=== PATIENT | female | born 1965 | race Caucasian/White ===

== ENCOUNTER 2017-04-14 12:19 | Emergency (ER) | payer BC, SELFPAY ==
--- NOTE | 2017-04-18 18:55 | ER ---
ADMIT: 04/14/2017 RM/LOC: ER [facility] MR#: [id number] [address] [id number] ORIANA BATES [address] [place] [address] Emergency Room Report SEX: F AGE: 51 : 1965 DATE: 04/14/2017 ADDENDUM: This patient comes into the ER because she has a headache that started today. It is the top of her head and the back of her neck. When she took her blood pressure, she thought it was high and she is concerned that maybe that may be causing her headache. She is nauseated, did not vomit and denies any sensitivity to light or sound. On physical exam, this is an alert, 51-year-old, obese female. Vital signs are normal. Her neuro exam is also normal. She ambulates and speaks appropriately. IV of normal saline was started. She was given Ativan, Toradol, and Zofran. When I went to evaluate her, she was still having pain. She was given diphenhydramine, which did improve her symptoms. We will have her go home rest in a quiet dark place. Push fluids. Follow up with her primary as needed. Please see my T-sheet. BRANDON Ovalle / Rodrick Montano MD / modl JOB #: [id number] CC: Rodrick Montano MD, Attending Physician Wilver Morgan, Family Physician
== END 2017-04-14 16:20 | disposition home or self-care (01) ==
LOC: ER 12:19
DX: R51 Headache (principal); E11.9 Type 2 diabetes mellitus without complications; F32.9 Major depressive disorder, single episode, unspecified; Z88.5 Allergy status to narcotic agent; Z88.6 Allergy status to analgesic agent; Z79.899 Other long term (current) drug therapy